=== PATIENT | female | born 1965 | race Caucasian/White ===

== ENCOUNTER 2023-04-06 14:33 | Emergency (ER) | payer OTHER, SELFPAY ==
[2023-04-06] VITALS (14 sets, daily range): BP systolic 137–166; BP diastolic 76–95; PULSE 67–77; RESP 10–23; TEMP 36.6; O2SAT 97–100; BMI 30.5
--- NOTE | 2023-04-06 14:44 | DI.RAD.S_ITS ---
PROCEDURE: XR CHEST 1V INDICATIONS: chest pain TECHNIQUE: One view of the chest was acquired. COMPARISON: None. FINDINGS: Surgical changes and devices: None. Lungs and pleura: Lungs are clear. No pleural effusions or pneumothorax. Mediastinum: Mediastinal contours appear normal. Heart size is normal. Bones and chest wall: No suspicious bony lesions. Overlying soft tissues appear unremarkable. IMPRESSION: No acute cardiopulmonary abnormality is seen. Dictated by: Vince Burton M.D. on 04/06/2023 at 15:42 Approved by: Vince Burton M.D. on 04/06/2023 at 15:42
[2023-04-06 15:10] LABS: Add Manual Diff / Slide Review NO; Basophils Absolute Auto 0 /uL (0-100); Basophils Percent Auto 0.8 % (0-2); Eosinophils Absolute Auto 100 /uL (0-450); Eosinophils Percent Auto 2.2 % (2-4); Hematocrit 42.9 % (36-46); Hemoglobin 14.6 g/dL (12.0-16.0); Lymphocytes Absolute Auto 1900 /uL (1100-4500); Lymphocytes Percent Auto 35.4 % (25-40); Mean Corpuscular HGB Conc 33.9 % (30-36); Mean Corpuscular Hemoglobin 30.6 PG (26-34); Mean Corpuscular Volume 90.2 fL (80-100); Monocytes Absolute Auto 400 /uL (0-900); Monocytes Percent Auto 7.3 % (3-14); Neutrophils Absolute Auto 2900 /uL (1500-7000); Neutrophils Percent Auto 54.3 % (50-75); Platelet Count 268 X10^3/uL (150-400); Red Blood Cell Count 4.76 X10^6/uL (4.0-5.2); Red Cell Distribution Width 13.3 % (11.6-14.8); White Blood Cell Count 5.4 X10^3/uL (4.5-11.0)
[2023-04-06 15:23] LABS: INR 0.9 (0.9-1.3); Prothrombin Time 10.7 SECONDS (9.4-12.5)
[2023-04-06 15:26] LABS: PTT Partial Thromboplastin Tim 31 SECONDS (25.1-36.5)
[2023-04-06 15:28] LABS: Alanine Aminotransferase 23 IU/L (<35); Albumin 4.2 g/dL (3.5-5.0); Albumin Globulin Ratio 1.3 (1.0-2.8); Alkaline Phosphatase 72 U/L (38-126); Aspartate Aminotransferase 23 IU/L (14-36); BUN Creatinine Ratio 29.9 (6-22); Bilirubin Total 0.9 mg/dL (0.2-1.3); Blood Urea Nitrogen 20 mg/dL (7-17); Calcium 8.9 mg/dL (8.4-10.2); Carbon Dioxide 27 mmol/L (22-32); Chloride 105 mmol/L (98-107); Creatine Kinase 69 U/L (30-135); Estimated Glomerular Filt Rate > 60 mL/min (>60); Globulin 3.3 g/dL (1.7-4.1); Glucose 81 mg/dL (70-100); HEMOLYSIS < 15 (0-50); Lipase 94 U/L (23-300); Magnesium 1.9 mg/dL (1.6-2.3); Potassium 3.5 mmol/L (3.4-5.1); Sodium 142 mmol/L (137-145); Total Protein 7.5 g/dL (6.3-8.2)
[2023-04-06 15:40] LABS: Troponin I < 0.012 ng/mL (0.01-0.034)
--- NOTE | 2023-04-06 17:24 | PC.NURSE ---
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 Patient also reports 1 witnessed syncopal episode yesterday with no injuries. Denies chest pain at this time.
[2023-04-06 18:27] LABS: Troponin I < 0.012 ng/mL (0.01-0.034)
--- NOTE | 2023-04-06 19:50 | ED_ITS ---
HPI - Chest Pain General Chief Complaint: Chest Pain Stated Complaint: chest pain, sent by [place] Time Seen by Provider: 04/06/23 16:07 Source: patient and family Mode of arrival: Ambulatory Limitations: no limitations History of Present Illness HPI narrative: This is a 57-year-old female who presents for evaluation of chest pain. Historian is the patient herself with her who is present and contributes to history. She reports that yesterday about mid day she had the onset of right-sided chest pain which at times went across her chest radiated to her neck and back. She says it felt like ?muscle?. Shortly after that, she got up to walk to the bathroom took a few steps became nauseated and dizzy and then had a brief syncopal episode, she was helped to the ground by her she did not have any injury from this. She did not note any change in her pain with exertion, it was not accompanied by shortness of breath or nausea she has not had fevers, no changes in her bowel habits no previous similar pain. No history of prolonged immobilizations or leg pain. She does have a family history of coronary disease says her father who was a smoker had a heart attack in his 30s. She says at 1 point she was on a statin however this was discontinued. No history of hypertension no history of diabetes nonsmoker. She has had no previous abdominal surgeries only active past medical history is hypothyroidism for which she takes thyroid replacement. She has a primary care doctor in [place]. Dr. Caban. Related Data Allergies Allergy/AdvReac Type Severity Reaction Status Date / Time No Known Drug Allergies Allergy Verified 04/06/23 14:36 Patient History alcohol intake frequency: holidays/special occasions only Substance Use Type: does not use Exam Narrative Exam Narrative: Alert, no acute distress HEENT: Normocephalic, atraumaitic moist mucus membranes Neck: Supple no midline tenderness Lungs: Clear to ascultaion, no respiratory distress Heart: Regular rhythm and rate no murmur. Radial pulses are symmetric Abdomen: Normal bowel sounds, soft and nontender. No pulsatile mass Extremeties: Full range of motion no deformity. No calf tenderness or cords Neuro: Alert and oriented, normal speech moves x4 Initial Vital Signs Initial Vital Signs: Vital Signs Temperature 97.9 F 04/06/23 14:37 Pulse Rate 77 04/06/23 14:37 Respiratory Rate 18 04/06/23 14:37 Blood Pressure 166/95 H 04/06/23 14:37 Pulse Oximetry 98 04/06/23 14:37 Oxygen Delivery Method Room Air 04/06/23 14:37 Course Orders Ordered: ED Orders 04/06/23 14:44 XR chest 1V Stat EKG-12 Lead Stat 04/06/23 14:57 Complete Blood Count AUTO DIFF Stat Comprehensive Metabolic Panel Stat Lipase Stat Magnesium Stat PTT Partial Thromboplastin Job Stat Prothrombin Time INR Stat Troponin & CK Cardiac Panel Stat 04/06/23 17:34 EKG-12 Lead Stat 04/06/23 17:55 Troponin I Stat Vital Signs Vital signs: Vital Signs - 8 hr 04/06/23 14:37 04/06/23 15:31 04/06/23 16:00 Temperature 97.9 F Pulse Rate 77 76 Respiratory Rate 18 Blood Pressure 166/95 H 158/79 H Pulse Oximetry 98 99 Oxygen Delivery Method Room Air 04/06/23 16:00 04/06/23 16:30 04/06/23 16:30 Temperature Pulse Rate 69 68 Respiratory Rate 13 Blood Pressure 148/85 H Pulse Oximetry 98 99 Oxygen Delivery Method 04/06/23 17:00 04/06/23 17:00 04/06/23 17:30 Temperature Pulse Rate 69 67 Respiratory Rate 10 L Blood Pressure 145/89 H Pulse Oximetry 97 100 Oxygen Delivery Method Room Air 04/06/23 17:31 04/06/23 17:31 04/06/23 18:00 Temperature Pulse Rate 67 68 Respiratory Rate 13 13 Blood Pressure 137/83 Pulse Oximetry 100 100 Oxygen Delivery Method 04/06/23 18:00 04/06/23 18:30 04/06/23 18:30 Temperature Pulse Rate 70 Respiratory Rate 17 Blood Pressure 148/83 H 143/76 H Pulse Oximetry 97 Oxygen Delivery Method 04/06/23 18:52 04/06/23 18:52 04/06/23 19:00 Temperature Pulse Rate 71 71 Respiratory Rate 20 16 Blood Pressure 153/83 H Pulse Oximetry 99 99 Oxygen Delivery Method 04/06/23 19:01 04/06/23 19:01 04/06/23 19:30 Temperature Pulse Rate 70 Respiratory Rate 18 Blood Pressure 143/85 H 146/93 H Pulse Oximetry 100 Oxygen Delivery Method Room Air 04/06/23 19:30 Temperature Pulse Rate 73 Respiratory Rate 23 Blood Pressure Pulse Oximetry 99 Oxygen Delivery Method MDM - Chest Pain Lab Data Lab results narrative: CBC with diff and CMP are unremarkable, troponins are normal x2 04/06/23 14:57 04/06/23 14:57 Labs: Lab Results 04/06/23 04/06/23 Range/Units 14:57 17:55 WBC 5.4 (4.5-11.0) X10^3/uL RBC 4.76 (4.0-5.2) X10^6/uL Hgb 14.6 (12.0-16.0) g/dL Hct 42.9 (36-46) % MCV 90.2 (80-100) fL MCH 30.6 (26-34) PG MCHC 33.9 (30-36) % RDW 13.3 (11.6-14.8) % Plt Count 268 (150-400) X10^3/uL Neut % (Auto) 54.3 (50-75) % Lymph % (Auto) 35.4 (25-40) % Reeves % (Auto) 7.3 (3-14) % Eos % (Auto) 2.2 (2-4) % Baso % (Auto) 0.8 (0-2) % Neut # (Auto) 2900 (6419-7756) /uL Lymph # (Auto) 1900 (5916-8421) /uL Reeves # (Auto) 400 (0-900) /uL Eos # (Auto) 100 (0-450) /uL Baso # (Auto) 0 (0-100) /uL PT 10.7 (9.4-12.5) SECONDS INR 0.9 (0.9-1.3) APTT 31 (25.1-36.5) SECONDS Sodium 142 (137-145) mmol/L Potassium 3.5 (3.4-5.1) mmol/L Chloride 105 (98-107) mmol/L Carbon Dioxide 27 (22-32) mmol/L BUN 20 H (7-17) mg/dL Creatinine 0.67 (0.52-1.04) mg/dL Estimated GFR > 60 (>60) mL/min BUN/Creatinine Ratio 29.9 H (6-22) Glucose 81 (70-100) mg/dL Calcium 8.9 (8.4-10.2) mg/dL Magnesium 1.9 (1.6-2.3) mg/dL Total Bilirubin 0.9 (0.2-1.3) mg/dL AST 23 (14-36) IU/L ALT 23 (<35) IU/L Alkaline Phosphatase 72 (38-126) U/L Total Creatine Kinase 69 (30-135) U/L Troponin I < 0.012 < 0.012 (0.01-0.034) ng/mL Total Protein 7.5 (6.3-8.2) g/dL Albumin 4.2 (3.5-5.0) g/dL Globulin 3.3 (1.7-4.1) g/dL Albumin/Globulin Ratio 1.3 (1.0-2.8) Lipase 94 (23-300) U/L Urine Dip Bedside Urine Glucose Negative Bedside Urine Bilirubin - Negative Bedside Urine Ketone - Negative Urine Specific [place] 1.020 Bedside Urine Occult Blood - Negative Bedside Urine pH 6.0 Bedside Urine Protein - Negative Bedside Urine Urobilinogen - Negative Bedside Urine Nitrite - Negative Bedside Urine Leukocytes - Negative Esterase Imaging Data Chest x-ray: My Impression: Independent review of one-view chest no acute findings Radiologist's Impression: Radiologist's report reviewed, no acute findings ECG Data Interpretation: EKG shows normal sinus rhythm at 72. Intervals are normal, there are septal Q- waves there is no old EKG available for comparison, also has Q-waves in lead [address] segment changes MDM Narrative Medical decision making narrative: 57-year-old female presenting with chest pain onset greater than 24 hours ago and a brief syncopal event that sounds very much like it was vasovagal. I considered the possibility of ischemia, this seems unlikely given troponins being normal x2 24 hours after onset. Nothing in the presentation is suggest pulmonary embolism. Chest x-ray does not show pneumonia she does not have infectious symptoms I considered aortic pathology her exam does not suggest that presentation is quite benign at present. Esophageal reflux as possible I suggest an empiric trial of omeprazole Discharge Plan Departure Patient Disposition: Home Clinical Impression: Atypical chest pain Syncope Qualifiers: Syncope type: vasovagal syncope Qualified Code(s): R55 - Syncope and collapse Instructions: DI for Chest Pain Activity Restrictions/Additional Instructions: Emergency department evaluation today is reassuring. I do not think that you have an acute problem requiring hospitalization or further immediate testing. As we discussed, I think that your pain may be related to esophageal reflux and taking omeprazole 20 mg daily which is available [id number] may help prevent recurrences. I do suggest that you follow up soon with your primary care provider for a recheck. If you are having recurrent chest pain further episodes of fainting or other acute symptoms recheck in the emergency department. Referrals: Miscellaneous,Doctor, [Primary Care Provider] - Stand Alone Forms: Patient Portal/API
== END 2023-04-06 20:03 | disposition home or self-care (01) ==
PROVIDERS: Emergency Medicine; Emergency Provider Emergency Medicine
DX: R07.89 Other chest pain (principal); R55 Syncope and collapse
CPT/HCPCS: 36415; 71045; 80053; 81003; 82550; 83690; 83735; 84484; 85025; 85610; 85730; 93005; 99284